=== PATIENT | male | born 2000 | race Caucasian/White ===

== ENCOUNTER 2020-09-26 21:48 | Emergency (ER) | payer SELFPAY ==
[~2020-09-26] VITALS: Ht 167.6 cm; Wt 56.8 kg
[2020-09-26] MEDS ORDERED: GI COCKTAIL 50ML BTL(HYOSCYAMINE/MAALOX/LIDOCAINE VISCOUS)(1:3:1) PO ONE (22:15)
[2020-09-26] MEDS ORDERED: PANTOPRAZOLE 40MG VIAL (C9113 PER 1) IV ONE (22:15)
[2020-09-26 22:36] LABS: BASO % 0.3 % (0.0-1.0); EOS # 0.1 10^3/uL (0.0-0.5); EOS % 1.8 % (0.0-3.0); HEMATOCRIT 49.5 % (42.0-52.0); HEMOGLOBIN 16.2 g/dl (13.5-17.5); LYMPH # 2.6 10^3/uL (1.5-5.0); LYMPH % 36.1 % (24.0-44.0); MEAN CORPUSCULAR HEMOGLOBIN 29.6 pg (27.0-33.0); MEAN CORPUSCULAR HGB CONC 32.7 g/dl (32.0-36.5); MEAN CORPUSCULAR VOLUME 90.5 fl (80.0-96.0); MONO # 0.6 10^3/uL (0.0-0.8); MONO % 7.7 % (2.0-8.0); NEUTROPHILS # 3.9 10^3/uL (1.5-8.5); PLATELET COUNT, AUTOMATED 279 10^3/uL (150-450); RED BLOOD COUNT 5.47 10^6/uL (4.30-6.10); WHITE BLOOD COUNT 7.2 10^3/uL (4.0-10.0)
[2020-09-26 22:46] LABS: INR 1.14; PROTHROMBIN TIME 14.8 SECONDS (12.5-14.3)
[2020-09-26 22:47] LABS: PARTIAL THROMBOPLASTIN TIME 30.7 SECONDS (24.2-38.5)
[2020-09-26 23:09] LABS: ALBUMIN 4.2 GM/DL (3.2-5.2); ALT/SGPT 28 U/L (12-78); BILIRUBIN,DIRECT 0.1 MG/DL (0.0-0.2); BILIRUBIN,TOTAL 0.4 MG/DL (0.2-1.0); BLOOD UREA NITROGEN 16 MG/DL (7-18); CALCIUM LEVEL 8.9 MG/DL (8.5-10.1); CARBON DIOXIDE LEVEL 32 MEQ/L (21-32); CHLORIDE LEVEL 105 MEQ/L (98-107); CK-MB VALUE MASS < 1.0 NG/ML (<3.6); CPK CREATINE PHOSPHOKINASE 101 U/L (39-308); CREATININE FOR GFR 1.47 MG/DL (0.70-1.30); FREE T4 1.08 NG/DL (0.76-1.46); GLOMERULAR FILTRATION RATE > 60.0 (>60); GLUCOSE, FASTING 125 MG/DL (70-100); LIPASE 97 U/L (73-393); MB/CK RELATIVE INDEX 0.99 (< OR =4); SODIUM LEVEL 140 MEQ/L (136-145); TOTAL PROTEIN 7.2 GM/DL (6.4-8.2); TROPONIN I < 0.02 NG/ML (< 0.10)
[2020-09-26] MEDS ORDERED: ISOVUE-370 76% 100ML VIAL As Ordered ONE (23:13)
--- NOTE | 2020-09-27 00:45 | REPVR ---
PROCEDURE INFORMATION: Exam: CTA Chest With Contrast Exam date and time: 09/26/2020 12:06 AM Age: 20 years old Clinical indication: Chest pain; Type not specified TECHNIQUE: Imaging protocol: Computed tomographic angiography of the chest with contrast. 3D rendering (Not supervised by radiologist): MIP and/or 3D reconstructed images were created by the technologist. Radiation optimization: All CT scans at this facility use at least one of these dose optimization techniques: automated exposure control; mA and/or kV adjustment per patient size (includes targeted exams where dose is matched to clinical indication); or iterative reconstruction. Contrast material: ISOVUE 370; Contrast volume: 75 ml; Contrast route: INTRAVENOUS (IV); COMPARISON: No relevant prior studies available. FINDINGS: Pulmonary arteries: Normal. No pulmonary emboli. Aorta: Suboptimal contrast opacification of the aorta. No aortic aneurysm. No aortic dissection. Bronchial tree: Bronchial mucous plugging in the right lower lobe. Lungs: Unremarkable. No consolidation. No masses. Pleural spaces: Unremarkable. No pneumothorax. No pleural effusion. Heart: Unremarkable. No cardiomegaly. No pericardial effusion. Lymph nodes: Unremarkable. No enlarged lymph nodes. Bones/joints: Unremarkable. No acute fracture. Soft tissues: Unremarkable. IMPRESSION: 1. Negative for pulmonary emboli. 2. Bronchial mucous plugging in the right lower lobe. Electronically signed by: Florian Mckenzie On 09/27/2020 00:46:01 AM
[2020-09-27 01:30] VITALS: BP 126/61
--- NOTE | 2020-09-27 15:57 | ECGEPIP ---
[facility] - ED Test Date: 2020-09-26 Pat Name: FARAZ BURTON Department: Room: - Gender: Male Scrape Gat[employer]r: : 2000 Requested By: Felix Lawrence Order Number: [id number] Reading MD: Jose Ramon Bose Measurements Intervals [place] Rate: 77 P: 62 AL: 98 QRS: 61 QRSD: 78 T: 58 QT: 364 QTc: 411 Interpretive Statements Sinus rhythm with short AL Comparison tracing not on file Electronically Signed on 09-27-2020 15:57:14 EDT by Jose Ramon Bose
== END 2020-09-27 01:43 | disposition home or self-care (01) ==
LOC: M ED 21:48
DX: R07.89 Other chest pain (principal); J98.09 Other diseases of bronchus, not elsewhere classified; K21.9 Gastro-esophageal reflux disease without esophagitis; J45.909 Unspecified asthma, uncomplicated; F17.200 Nicotine dependence, unspecified, uncomplicated; Z88.2 Allergy status to sulfonamides; Z91.030 Bee allergy status
CPT/HCPCS: 71275; 80048; 80076; 82550; 82553; 83690; 84439; 84443; 84484; 85025; 85610; 85730; 93005; 93041; 94760; 96374; 99285; C9113; Q9967

== ENCOUNTER 2020-12-05 19:17 | Emergency (ER) | payer SELFPAY ==
[~2020-12-05] VITALS: Ht 167.6 cm; Wt 56.5 kg
[2020-12-05] MEDS ORDERED: ACET-683 PO (19:34)
[2020-12-05] MEDS ORDERED: IBUPROFEN 600MG TAB PO ONE (20:35)
[2020-12-05 22:53] VITALS: BP 143/80
== END 2020-12-05 22:55 | disposition home or self-care (01) ==
LOC: M ED 19:17
DX: R50.9 Fever, unspecified (principal); R05 Cough; T50.B95A Adverse effect of other viral vaccines, initial encounter; Z88.1 Allergy status to other antibiotic agents; Z88.2 Allergy status to sulfonamides